=== PATIENT | male | born 1975 | race Caucasian/White ===

== ENCOUNTER 2019-11-07 13:03 | Inpatient (IN) | payer OTHER ==
[~2019-11-07] VITALS: Ht 177.8 cm; Wt 89.8 kg
[2019-11-07 13:03] VITALS: BP_SYST 159
--- NOTE | 2019-11-07 13:03 | NUR ---
BROUGHT BACK TO BED #2 AND TRIAGED. REPORT GIVEN TO KAITY
--- NOTE | 2019-11-07 13:10 | NUR ---
Pt came to ER for vomiting and inability to swallow noticed during lunch. Pt is currently resting in [facility], currently has clear emesis inability to keep saliva down.
--- NOTE | 2019-11-07 13:10 | NUR ---
ER at bedside examining patient.
[2019-11-07] MEDS ORDERED: GLUCAGON,HUMAN RECOMBINANT 1 MG VIAL IVP ONE ×2 (13:15→14:00)
[2019-11-07] MEDS ORDERED: METOCLOPRAMIDE HCL 10 MG/2 ML VIAL IVP ONE (13:15)
[2019-11-07 13:52] LABS: BASOPHILS # (AUTO) 0.1 K/uL (0.0-0.2); BASOPHILS % (AUTO) 0.9 % (0.0-2.0); EOSINOPHILS # (AUTO) 0.2 K/uL (0.0-0.4); EOSINOPHILS % (AUTO) 2.7 % (0.0-4.0); HEMATOCRIT 45.6 % (36-54); HEMOGLOBIN 15.5 g/dL (14.0-18.0); LYMPHOCYTES # (AUTO) 2.3 K/uL (1.0-5.5); LYMPHOCYTES % (AUTO) 28.5 % (20.5-51.5); MEAN CORPUSCULAR HEMOGLOBIN 29 pg (27-31); MEAN CORPUSCULAR HGB CONC 34 % (32-36); MEAN CORPUSCULAR VOLUME 86 fL (79.0-98.0); MONOCYTES # (AUTO) 0.7 K/uL (0.0-1.0); MONOCYTES % (AUTO) 8.9 % (1.7-9.3); NEUTROPHILS # (AUTO) 4.7 K/uL (1.8-7.7); PLATELET COUNT (AUTO) 282 K/uL (130-430); RED BLOOD CELL COUNT(AUTO) 5.29 MIL/uL (4.2-6.2)
[2019-11-07 14:02] LABS: CALCIUM 8.4 mg/dL (8.4-11.0); CREATININE 0.97 mg/dL (0.55-1.30); POTASSIUM 3.6 mmol/L (3.5-5.1)
[2019-11-07 14:09] LABS: TOTAL BILIRUBIN 0.3 mg/dL (0.0-1.0)
--- NOTE | 2019-11-07 14:15 | NUR ---
Pt continues to vomit saliva into emesis bag, no c/o pain
--- NOTE | 2019-11-07 15:04 | NUR ---
Pt reports inability to swallow continuing
--- NOTE | 2019-11-07 15:05 | NUR ---
Patient transported to radiology via w/c, accompanied by tech.
[2019-11-07] MEDS ORDERED: BARIUM SULFATE 135 ML SUSP.RECON (E-Z-HD) PO ONE (15:16)
--- NOTE | 2019-11-07 15:25 | NUR ---
Pt returned to ED from radiology
[2019-11-07] MEDS ORDERED: IBUP-2101 PO (15:50)
[2019-11-07] MEDS ORDERED: OMEP20CA11 PO (15:50)
--- NOTE | 2019-11-07 15:53 | NUR ---
Dr. Almendarez at bedside discussing plan of care. Patient reports able to tolerate saliva a little more then earlier. Will continue to monitor patient.
--- NOTE | 2019-11-07 15:59 | NUR ---
DR CHILEL SPEAKING WITH DR ROGERS (ENT).
[2019-11-07 16:02] LABS: BILIRUBIN,URINE NEGATIVE (NEGATIVE); BLOOD, URINE NEGATIVE (NEGATIVE); CLARITY/URINE CLEAR (CLEAR); COLOR,URINE YELLOW (YELLOW); GLUCOSE,URINE NEGATIVE (NEGATIVE); KETONES,URINE NEGATIVE (NEGATIVE); LEUKOCYTE ESTERASE ,URINE NEGATIVE (NEGATIVE); NITRITE, URINE NEGATIVE (NEGATIVE); PROTEIN URINE NEGATIVE (NEGATIVE); UROBILINOGEN,URINE 0.2 (0.2-1.0)
--- NOTE | 2019-11-07 16:08 | NUR ---
Pt moved to bed 01.pt on stable condition at this time
[2019-11-07] MEDS ORDERED: NITROGLYCERIN 0.4 MG TAB.SUBL SL ONE (16:15)
--- NOTE | 2019-11-07 16:15 | NUR ---
Patient voiced no complaints at this time. VSS. Will continue to monitor
[2019-11-07 16:20] LABS: PROTHROMBIN TIME 10.3 SECS (9.5-12.5)
--- NOTE | 2019-11-07 16:30 | NUR ---
Patient medicated per MD orders. Will continue to monitor.
--- NOTE | 2019-11-07 16:35 | NUR ---
Patient reports no relief with Nitro. MD notified. Will continue to monitor.
--- NOTE | 2019-11-07 16:39 | NUR ---
Oxygen applied at 2 L per minute per Nasal Cannula. O2 sats 97% by pulse oximetry.
--- NOTE | 2019-11-07 17:15 | NUR ---
VSS. Pt does not report any pain at this time and is resting at bedside. He has an emesis bag and will intermittenly spit up but denies nausea. Will continue to monitor.
--- NOTE | 2019-11-07 18:02 | NUR ---
Patient resting quietly. No acute distress noted. Vital signs within normal range.
--- NOTE | 2019-11-07 19:02 | NUR ---
Dr. Almendarez spoke to Dr. Mckenna for update. Will continue to monitor.
--- NOTE | 2019-11-07 20:24 | NUR ---
Dr. Mckenna on Phone speaking to patient regarding procedure. Patient reports he has understanding of procedure and all questions have been answered. Consent signed and witnessed at this time.
[2019-11-07] MEDS ORDERED: SUCCINYLCHOLINE CHLORIDE 20 MG/ML(QUELICIN) IVP ONE (21:00)
[2019-11-07] MEDS ORDERED: ETOMIDATE 20 MG/ 10 ML VIAL (AMIDATE) IVP ONE (21:00)
[2019-11-07] MEDS ORDERED: PROPOFOL DRIP 100 ML IV ONE (21:00)
--- NOTE | 2019-11-07 21:26 | NUR ---
Patient intubated with 7.5 ET tube 25 Lip Tidal Volume 500 60% O2. Will continue to monitor.
--- NOTE | 2019-11-07 21:30 | NUR ---
Propofol 5 mcg started.
--- NOTE | 2019-11-07 21:35 | NUR ---
Titrate to Propofol 10 mcg/min. Patient still awake.
--- NOTE | 2019-11-07 21:40 | NUR ---
Titrate to Propofol 15 mcg/min. Patient still awake and uncomfortable.
[2019-11-07] MEDS ORDERED: LORazepam 2 MG/ML VIAL IVP ONE (21:45)
--- NOTE | 2019-11-07 21:45 | NUR ---
Propofol 20 mcg/min. Patient still awake and gagging. Will continue to monitor.
--- NOTE | 2019-11-07 21:47 | NUR ---
Xray at bedside for ET tube Placement
--- NOTE | 2019-11-07 22:00 | NUR ---
Patient now sedated. VSS Stable at this time. Will continue to monitor.
--- NOTE | 2019-11-07 22:05 | NUR ---
BP 105/61 HR 69 RR23 O2 96% Propofol Titrated to 15 Mcg/min
--- NOTE | 2019-11-07 22:38 | NUR ---
Patient moved to GI Lab in stable condition on 20 mcg/min of Propofol for EGD. VS Hr 97 O2 94% BP 135/96. Accompanied by Dr. Mckenna, GT Tech, RT and Myself. Will continue to monitor.
--- NOTE | 2019-11-07 22:45 | NUR ---
EGD started by Dr. Mckenna. Will continue to close monitor.
--- NOTE | 2019-11-07 23:15 | NUR ---
Procedure completed. Patient tolerated well. Patient will be moved to ED for monitoring.
--- NOTE | 2019-11-07 23:16 | NUR ---
Esophageal biopsy to rule out Eosinophilic Esophagitis sent to Pathology.
--- NOTE | 2019-11-07 23:45 | NUR ---
DR FAITH SPOKE TO Mo BELCHER(PULMO CONSULT).ORDERED STAT ABG.
--- NOTE | 2019-11-07 23:51 | NUR ---
RT at bedside for ABG.
--- NOTE | 2019-11-07 23:54 | NUR ---
Report given to TERRA Swan
--- NOTE | 2019-11-08 00:03 | NUR ---
ABG RESULT BACK,NOTIFIED DR BELCHER.DR BELCHER ORDERED TO EXTUBATE PT AND TO KEEP PT O2 ABOVE 92% VIA 2L NASAL CANULA.
--- NOTE | 2019-11-08 00:05 | NUR ---
Propofol titrated down to 10mcg. Vital signs stable.
--- NOTE | 2019-11-08 00:10 | NUR ---
Propofol titrated down to 0mcg and shut off. Patient was extubated, RT and Physician bedside. Vital signs stable.
--- NOTE | 2019-11-08 00:22 | NUR ---
DR WATT ORDERED TO DOWNGRADE PT ADMISSION TO TELEMETRY.
--- NOTE | 2019-11-08 00:30 | NUR ---
Patient is urinated 300ml dark yellow clear urine in bedside urinal.
--- NOTE | 2019-11-08 00:45 | NUR ---
Patient able to speak full sentances, reports being sleepy. Respirations even and unlabored. Will continue to monitor.
--- NOTE | 2019-11-08 00:59 | NUR ---
Patient is full code.
--- NOTE | 2019-11-08 01:19 | NUR ---
Patient will be admitted to care of Dr. Cochran. Admitted to Telemetry unit. Will go to room 116B. Belongings list completed. Complete and up to date summary report printed. SBAR report to be given at bedside with opportunity for questions.
--- NOTE | 2019-11-08 01:20 | NUR ---
Transfer to Telemetry via ACLS protocol. Licensed nurse present. IV present no signs or symptoms of infiltration.
--- NOTE | 2019-11-08 01:40 | NUR ---
ADMISSION RECEIVED PATIENT FROM [facility] AD[facility]ED FOR ESOPHAGEAL IMPACTION, AWAKE, ALERT, ORIENTED, NOT IN DISTRESS, VITALS STABLE. DENIES ANY PAIN AT THIS TIME. ADMISSION ASSESSMENT DONE AND DOCUMENTED. ORIENTED TO HIS ROOM, PHONE AND CALL LIGHT. PLAN OF CARE DISCUSSED AND PATIENT VERBALIZED UNDERSTANDING. SAFETY AND FALL PRECAUTION MEASURES IN PLACED. BED ALARM ON. CALL LIGHT PLACED WITHIN REACH.
[2019-11-08 01:52] VITALS: BP_SYST 113
--- NOTE | 2019-11-08 02:10 | NUR ---
GI Consultation Paged Reason for consultation: Esophageal Impaction Was consult called: Yes Person who was notified: Consult called in ER Consulting Physician: Dr Mckenna Vending Machine Assembler Vending Machine Assembler Specialty: Gastroenterology Ordered By: Dr Crow Cochran
--- NOTE | 2019-11-08 02:13 | NUR ---
Pulmo Consultation Paged Reason for consultation: Esophageal Impaction Was consult called: Yes Person who was notified: Consult called in ER Consulting Physician: Dr Chan Diesel Locomotive Firer Diesel Locomotive Firer Specialty: Pulmonology Ordered By: Dr Crow Cochran
--- NOTE | 2019-11-08 04:12 | NUR ---
ROUNDS PATIENT ASLEEP, NO SOB NOTED, RESPIRATIONS EVEN AND UNLABORED. WILL CONTINUE TO MONITOR.
--- NOTE | 2019-11-08 06:55 | NUR ---
CLOSING NOTES PATIENT RESTING COMFORTABLY IN BED, VITALS STABLE, NO COMPLAINTS AT THIS TIME. ALL NEEDS ATTENDED TO. SAFETY MEASURES MAINTAINED. CALL LIGHT PLACED WITHIN REACH.
--- NOTE | 2019-11-08 07:26 | NUR ---
OPENING NOTE Patient resting in the bed. No acute distress. Skin warm and dry to touch. SL intact to RAC, no redness, no swelling, patent. Discussed the safety issue, use call light when needs help, and plan of care, verbally understanding. Safety measure maintained. Call light within reached. Bed locked in low position, side rails up. Refused bed alarm, risk and benefit explained, verbally understanding. Will continue to monitor.
[2019-11-08 07:55] VITALS: BP_SYST 135
--- NOTE | 2019-11-08 08:25 | NUR ---
SEEN AND EXAMINED BY ALISHA WAGNER WITH ORDER RECEIVED.
[2019-11-08] MEDS ORDERED: PANTOPRAZOLE SODIUM 40 MG TAB PO SCH (09:00)
--- NOTE | 2019-11-08 10:16 | NUR ---
PROTONIX PO GIVEN ORDERED, TOLERATED WELL. NO S/S OF ASPIRATION NOTED. ABLE TO SWALLOW WITHOUT DIFFICULTY.
[2019-11-08 12:00] VITALS: BP_SYST 145
[2019-11-08] MEDS ORDERED: PRO40 PO (12:26)
--- NOTE | 2019-11-08 12:30 | NUR ---
SEEN AND EXAMINED BY BAMBI BURNS.
--- NOTE | 2019-11-08 14:10 | NUR ---
ROUND Patient resting in the bed with eye closed. No acute distress. Safety measure maintained. Call light within reached. Continue to monitor.
--- NOTE | 2019-11-08 15:30 | NUR ---
E-PRESCRIPTION Called [facility] pharmacy in [place], Spoke to Mercedes regarding the e-prescription Protonix 40mg. Per Mercedes there is no record of the patient in their system. Talked to the patient, per patient not used [facility] pharmacy before. Phone number [phone] provided to the patient to call the pharmacy.
--- NOTE | 2019-11-08 15:38 | NUR ---
CALLED DR. WHITEHEAD'S EXCHANGE REGARDING THE CLEARANCE OF DISCHARGE, WAITED TO CALL BACK.
[2019-11-08 16:14] VITALS: BP_SYST 141
--- NOTE | 2019-11-08 16:52 | NUR ---
MILLIE erazo for DC: Dr. Mckenna has called and states OK for patient to go home and F/U in his office in 2-4 weeks.
--- NOTE | 2019-11-08 17:00 | NUR ---
CALLED TO [facility] IN [place]. HOWEVER, CLOSED ALREADY. INSTRUCTED THE PATIENT TO INDUSTRIAL RELATIONS COUNSELOR THE MEDICATION OF PROTONIX TOMORROW. IF ANY QUESTION MAY CALL BACK TO HOSPITAL, VERBALLY UNDERSTANDING.
[2019-11-08 17:39] VITALS: BP_SYST 141
--- NOTE | 2019-11-08 17:50 | NUR ---
CALLED THE PATIENT'S MOTHER MELCHOR ROBLERO TO FIELD SERVICE CONSULTANT PATIENT FOR DISCHARGE. PER MOM WILL BE HERE AROUND 1900.
--- NOTE | 2019-11-08 19:27 | NUR ---
D/C Patient Patient given medication reconciliation form and D/C instructions. Exit Care provided. Patient verbalized understanding. MD discussed with patient the results and treatment provided. Ambulatory with steady gait for discharge to home. Patient in stable condition, ID band removed. IV catheter removed, intact and dressing applied, no active bleeding. Patient educated on diet as tolerated, follow up appointment, and e-prescription of Protonix for indication and possible side effect, verbally understanding. All belongings sent with patient.
== END 2019-11-08 19:27 | disposition home or self-care (01) | DRG 393 ==
LOC: SED 13:03 → STU 11-08 00:18
PROVIDERS: ADMIT Preventive Medicine Preventive Medicine/Occupational Environmental Medicine; ATTEND Preventive Medicine Preventive Medicine/Occupational Environmental Medicine
PROC: 0DC48ZZ Extirpation of Matter from Esophagogastric Junction, Via Natural or Artificial Opening Endoscopic (ICD-10-PCS; principal; 2019-11-07)
PROC: 0DB68ZX Excision of Stomach, Via Natural or Artificial Opening Endoscopic, Diagnostic (ICD-10-PCS; 2019-11-07)
DX: T18.128A Food in esophagus causing other injury, initial encounter (principal); J96.00 Acute respiratory failure, unspecified whether with hypoxia or hypercapnia; K22.2 Esophageal obstruction; R13.10 Dysphagia, unspecified; R73.9 Hyperglycemia, unspecified; K44.9 Diaphragmatic hernia without obstruction or gangrene; X58.XXXA Exposure to other specified factors, initial encounter; Z91.013 Allergy to seafood; Z91.041 Radiographic dye allergy status; Y93.89 Activity, other specified; Y92.89 Other specified places as the place of occurrence of the external cause; Y99.8 Other external cause status
CPT/HCPCS: 36415; 36600; 70360-TC; 71045; 74220-TC; 80053; 81003; 82803-TC; 85025; 85610-TC; 88305; 88313; 93005; 96374; 96375; 99285; G0378; J0330; J1610; J2060; J2704; J2765; J3490; J7030